=== PATIENT | male | born 1960 | race Caucasian/White ===

== ENCOUNTER 2016-11-10 21:17 | Inpatient (IN) | payer OTHER | END 2016-11-10 22:38 | disposition EXP | DRG 951 | LOC: N03B 21:17 | DX: Z52.9 Donor of unspecified organ or tissue (principal) | CPT/HCPCS: 80048; 80053; 80074; 80076; 81001; 82150; 82248; 82948; 82977; 83036; 83690; 84155; 85007; 85025; 85027; 85610; 85730; 86703; 87040; 87086; 94003; C9113; J0692; J1644; J1815; J1953; J2060; J2270; J3010; J3370; J7040; J7070; J7120 ==